=== PATIENT | male | born 1990 | race Caucasian/White ===

== ENCOUNTER → 2020-11-29 09:25 | Outpatient (BNVA) | payer SELFPAY | PROVIDERS: PCP Nurse Practitioner Family; Visit Provider Specialist | DX: G43.801 Other migraine, not intractable, with status migrainosus (principal); H47.10 Unspecified papilledema; R20.0 Anesthesia of skin; R20.2 Paresthesia of skin | CPT/HCPCS: 99205 ==

== ENCOUNTER → 2021-01-18 12:09 | Outpatient (BNVA) | payer SELFPAY | PROVIDERS: PCP Nurse Practitioner Family; Visit Provider Specialist | DX: G93.2 Benign intracranial hypertension (principal); H46.9 Unspecified optic neuritis | CPT/HCPCS: 62270; 82945; 84157; 87070; 87075; 87205; 89050; 99214 ==